=== PATIENT | female | born 1955 | race Hispanic/Latino ===

== ENCOUNTER 2023-07-14 21:23 | Observation (INO) | payer OTHER, MEDICAID ==
[2023-07-15] MEDS ORDERED: Ondansetron PF 4 MG/2 ML Vial IVP PRN (01:47)
[2023-07-15] MEDS ORDERED: Morphine 2 MG/ML VIAL SLOW IVP PRN (01:48)
[2023-07-15] MEDS ORDERED: Scopolamine 1 mg/72 hour Patch TD SCH (02:00)
[2023-07-15] MEDS ORDERED: Ondansetron PF 4 MG/2 ML Vial IVP SCH (02:00)
[2023-07-15] MEDS ORDERED: Dextrose 5% in Water 1,000 ML IV PRN (02:07)
[2023-07-15] MEDS ORDERED: Acetaminophen 650 MG Suppository PR PRN (02:07)
[2023-07-15] MEDS ORDERED: Dextrose 50% Abboject 50 ML SYRINGE SLOW IVP PRN (02:07)
[2023-07-15] MEDS ORDERED: Glucagon 1 MG/ML KIT IM PRN (02:07)
[2023-07-15] MEDS ORDERED: Acetaminophen 325 MG TAB PO PRN (02:07)
[2023-07-15] MEDS: Benzocaine 20% Spray 60 ML CAN PO SCH ×7 (02:55→21:14)
[2023-07-15] MEDS: Sodium Chloride 0.9% 1,000 ML IV SCH ×3 (02:59→17:30)
[2023-07-15 05:33] VITALS: BMI 34.9
[2023-07-15] MEDS: Ketorolac Tromethamine 30 MG/ML VIAL IVP SCH ×3 (06:14→19:23)
[2023-07-15 06:56] LABS: #Eosinphils 0.1 thou/uL (0.0-0.7); #Monocytes 0.7 thou/uL (0.11-0.59); %Basophils 0.3 % (0.0-1.0); %Monocytes 6.5 % (0.0-10.0); %Neutrophils 78.9 % (42.0-75.0); Hematocrit 38.5 % (36.0-47.0); Hemoglobin 12.8 g/dL (12.0-16.0); Mean Corpuscular HGB CONC 33.2 g/dL (32.0-36.0); Mean Corpuscular Hemoglobin 30.6 pg (27.0-31.0); Mean Corpuscular Volume 92.1 fl (78.0-98.0); Mean Platelet Volume 10.2 fL (7.4-10.4); Platelet Count 209 10x3/uL (130-400); RBC Distribution Width 12.1 % (11.5-14.5); Red Blood Cell (RBC) Count 4.18 mill/uL (4.20-5.40); White Blood Cell (WBC) Count 10.2 10x3/uL (4.8-10.8)
[2023-07-15 07:25] LABS: Anion Gap 11 mmol/L (10-20); BUN (Urea Nitrogen) 21 mg/dL (9.8-20.1); Calc. Creatinine Clearance 81 mL/min (70-130); Calcium 9.2 mg/dL (7.8-10.44); Carbon Dioxide 31 mmol/L (23-31); Chloride 102 mmol/L (98-107); Estimated GFR 69; Glucose 111 mg/dL (80-115); Potassium 4.9 mmol/L (3.5-5.1); Sodium 139 mmol/L (136-145)
[2023-07-15] MEDS: Famotidine/PF 20 mg/2ml Vial SLOW IVP SCH ×2 (09:08→21:14)
[2023-07-15] MEDS ORDERED: MD-Gastroview 120 ML BOT ONE (13:40)
[2023-07-16] MEDS: Ketorolac Tromethamine 30 MG/ML VIAL IVP SCH ×2 (00:01→06:22)
[2023-07-16] MEDS: Benzocaine 20% Spray 60 ML CAN PO SCH ×4 (02:46→07:43)
[2023-07-16] MEDS: Sodium Chloride 0.9% 1,000 ML IV SCH (05:25)
[2023-07-16] MEDS: Famotidine/PF 20 mg/2ml Vial SLOW IVP SCH (07:45)
[2023-07-16 11:44] VITALS: BP 129/70; TEMP 97.6
[2023-07-18] MEDS ORDERED: FLU VACC QS2023(65UP)/MF59C/PF 60 MCG/0.5 ML SYRINGE IM ONE (09:00)
== END 2023-07-16 12:30 | disposition home or self-care (01) ==
LOC: SURG B 07-15 00:51
PROVIDERS: ADMIT Student in an Organized Health Care Education/Training Program; ATTEND Internal Medicine
DX: K52.9 Noninfective gastroenteritis and colitis, unspecified (principal); I10 Essential (primary) hypertension; M06.9 Rheumatoid arthritis, unspecified; K21.9 Gastro-esophageal reflux disease without esophagitis; K56.609 Unspecified intestinal obstruction, unspecified as to partial versus complete obstruction; Z79.82 Long term (current) use of aspirin; Z79.899 Other long term (current) drug therapy; Z88.6 Allergy status to analgesic agent; Z88.8 Allergy status to other drugs, medicaments and biological substances
CPT/HCPCS: 74250; 80048; 82962 ×2; 85025; 96374; 96375; 96376 ×2; G0378 ×2; 36415; 36416; J1885; J2272; J2405; J7050; Q9963; S0028